=== PATIENT | male | born 1950 | race Caucasian/White ===

== ENCOUNTER → 2018-04-17 08:13 | Outpatient (CLI) | payer MEDICARE, OTHER ==
[2014-06-24 06:17] VITALS: BMI 28.1
[~2018-04-17 08:13] MED LIST: BAYER CHEWABLE81 MG PO; CELEXA20 MG PO; CENTRUM COMPLE1 EACH PO; HYDROCODON-ACE1 EAC7 PO; NIASPAN500 MG PO; PRAVACHOL20 MG PO; PRILOSEC20 MG PO
== END | disposition home or self-care (01) ==
LOC: D.MRI 08:00
DX: M25.512 Pain in left shoulder (principal)